=== PATIENT | female | born 1980 | race Caucasian/White ===

== ENCOUNTER 2018-02-24 14:27 | Emergency (ER) | END 2018-02-24 17:12 | disposition home or self-care (01) ==

== ENCOUNTER 2018-11-25 23:49 | Emergency (ER) | payer MEDICAID ==
[~2018-11-25] VITALS: Ht 154.9 cm; Wt 57.5 kg
[~2018-11-25 23:49] MED LIST: BACTDS PO; HYDR-3498 PO
[2018-11-25 23:55] VITALS: BP 152/74; PULSE 92; RESP 16; Ht 154.9 cm; Wt 57.5 kg
[2018-11-26] MEDS ORDERED: ALBU18HF INHALATION (01:25)
[2018-11-26] MEDS ORDERED: AZIT250T PO (01:25)
[2018-11-26] MEDS ORDERED: HYCODAN PO (01:29)
--- NOTE | 2018-11-26 01:35 | ERD ---
ER Documentation Chief Complaint Chief Complaint cough w/ CWP x2 weeks HPI 38-year-old female who presents to the emergency room with approximately 2 to 3 weeks of cough. Cough is dry nonproductive. The patient has chest wall pain with coughing. No fever during this timeframe. Persistent symptoms despite the use of [id number] medications. No history of asthma or smoking. She denies exertional symptoms. No leg swelling. Symptoms are moderate. ROS All systems reviewed and are negative except as per history of present illness. Medications Home Meds Active Scripts [Hycodan 5mg/1.5mg] No Conflict Check, 1 TAB PO TID PRN for COUGH, #12 Prov:PAUL DIAZ MD 11/26/18 Azithromycin* (Zithromax*) 250 Mg Tablet, 250 MG PO .ZPACK DIRECTED, #6 TAB TAKE 500 MG (2 TABS) THE FIRST DAY THEN 250 MG (1 TAB) DAYS 2-5 Prov:PAUL DIAZ MD 11/26/18 Albuterol Sulfate* (Ventolin HFA*) 18 Gm Hfa.aer.ad, 2 PUFF INHALATION Q4H, #1 INHALER Prov:PAUL DIAZ MD 11/26/18 Hydrocodone Bit-Acetaminophen* (Merlin*) 5-325 Mg Tab, 1 TAB PO Q6 PRN for PAIN, #15 TAB Prov:MARTHA CERON 09/06/15 Sulfamethoxazole-Trimethoprim* (Bactrim* DS) 800-160 Mg Tab, 1 TAB PO BID for 14 Days, TAB Prov:MARTHA CERON 09/06/15 Allergies Allergies: Coded Allergies: No Known Drug Allergy (Verified Allergy, Unknown, 09/06/15) PMhx/Soc History of Surgery: Yes (APPENDECTOMY) Anesthesia Reaction: No Hx Neurological Disorder: No Hx Respiratory Disorders: No Hx Cardiac Disorders: No Hx Psychiatric Problems: No Hx Miscellaneous Medical Probl: Yes (ANEMIA) Hx Alcohol Use: No Hx Substance Use: No Hx Tobacco Use: No FmHx Family History: No diabetes Physical Exam Vitals Vital Signs Date Temp Pulse Resp B/P (MAP) Pulse Ox O2 O2 Flow FiO2 Time Delivery Rate 11/25/18 98.1 92 16 152/74 98 23:55 (100) Physical Exam General: Well developed, well nourished, no acute distress Head: Normocephalic, atraumatic. Eyes: Pupils equally reactive, EOM intact ENT: Moist mucous membranes Neck: Supple, no lymphadenopathy Respiratory: Lungs clear bilaterally, no distress Cardiovascular: RRR, no murmurs, rubs, or gallops Abdominal: Soft, non-tender, non-distended, no peritoneal signs : Deferred MSK: No edema, no unilateral swelling, 5/5 strength Neurologic: Alert and oriented, moving all extremities, normal speech, no focal weakness, no cerebellar signs Skin: No rash Psych: Normal mood Procedures/MDM The patient's clinical presentation is very consistent with an acute viral syndrome versus atypical pneumonia. Given duration of symptoms I believe a trial of inhaler, antibiotics would be appropriate. I do not believe chest x- ray imaging will be helpful at this time. Low concern for malignancy. Lungs are clear and oxygen saturation 100%. The patient does not exhibit any clinical signs or symptoms concerning for serious bacterial infection or systemic illness. Based on history and clinical exam findings the patient does not appear to have evidence of pneumonia, strep pharyngitis, urinary tract infection, bacteremia, sepsis, or meningitis. For these reasons I do not believe it is necessary to obtain laboratory testing or diagnostic imaging. I believe it would be appropriate for symptom control, and close outpatient primary care follow-up. We discussed follow up with the patient's primary care doctor within 24 to 48 hours as needed. We also discussed return to the emergency room for worsening symptoms or worsening condition. Discharge Medications: Azithromycin, albuterol, Hycodan Departure Diagnosis: Primary Impression: Acute bronchitis Bronchitis organism: unspecified organism Qualified Codes: J20.9 - Acute bronchitis, unspecified Condition: Stable Patient Instructions: Acute Bronchitis Referrals: [facility] YOU HAVE RECEIVED A MEDICAL SCREENING EXAM AND THE RESULTS INDICATE THAT YOU DO NOT HAVE A CONDITION THAT REQUIRES URGENT TREATMENT IN THE EMERGENCY DEPARTMENT. FURTHER EVALUATION AND TREATMENT OF YOUR CONDITION CAN WAIT UNTIL YOU ARE SEEN IN YOUR DOCTORS OFFICE WITHIN THE NEXT 1-2 DAYS. IT IS YOUR RESPONSIBILITY TO MAKE AN APPOINTMENT FOR FOLOW-UP CARE. IF YOU HAVE A PRIMARY DOCTOR --you should call your primary doctor and schedule an appointment IF YOU DO NOT HAVE A PRIMARY DOCTOR YOU CAN CALL OUR PHYSICIAN REFERRAL HOTLINE AT IF YOU CAN NOT AFFORD TO SEE A PHYSICIAN YOU CAN CHOSE FROM THE FOLLOWING COMMUNITY CLINICS [facility] [address] [facility] [address] [facility] [address] [facility] [address] [facility] [address] [facility]. [facility] [address] [facility]. [facility] YOU HAVE RECEIVED A MEDICAL SCREENING EXAM AND THE RESULTS INDICATE THAT YOU DO NOT HAVE A CONDITION THAT REQUIRES URGENT TREATMENT IN THE EMERGENCY DEPARTMENT. FURTHER EVALUATION AND TREATMENT OF YOUR CONDITION CAN WAIT UNTIL YOU ARE SEEN IN YOUR DOCTORS OFFICE WITHIN THE NEXT 1-2 DAYS. IT IS YOUR RESPONSIBILITY TO MAKE AN APPOINTMENT FOR FOLOW-UP CARE. IF YOU HAVE A PRIMARY DOCTOR --you should call your primary doctor and schedule and appointment IF YOU DO NOT HAVE A PRIMARY DOCTOR YOU CAN CALL OUR PHYSICIAN REFERRAL HOTLINE AT . IF YOU CAN NOT AFFORD TO SEE A PHYSICIAN YOU CAN CHOSE FROM THE FOLLOWING [facility]: [facility] [address] [place] [address] [facility] [address] [place] [address] [facility] [address] [place] [address] Additional Instructions: Call your primary care doctor TOMORROW for an appointment during the next 1 WEEK.Tell the trade union secretary that you were referred from this facility.See the doctor sooner or return here if your condition worsens before your appointment time. PAUL DIAZ MD Nov 26, 2018 01:34
== END 2018-11-26 02:14 | disposition home or self-care (01) ==
LOC: E/R 23:49
DX: J20.9 Acute bronchitis, unspecified (principal)
CPT/HCPCS: 99283

== ENCOUNTER 2018-12-01 18:23 | Emergency (ER) | payer MEDICAID ==
[~2018-12-01] VITALS: Ht 154.9 cm; Wt 57.1 kg
[~2018-12-01 18:23] MED LIST changes: +ALBU18HF INHALATION; +AZIT250T PO; +HYCODAN PO
[2018-12-01 18:33] VITALS: Ht 154.9 cm; Wt 57.1 kg
[2018-12-01] MEDS ORDERED: BENZ-6 PO (20:02)
--- NOTE | 2018-12-01 20:05 | ERD ---
ER Documentation Chief Complaint Chief Complaint COUGH X 1 WEEK HPI Patient is a 38-year-old female, no past medical history, who presents the ER for concerns of dry cough x1 week. Patient was seen here 5 days ago and diagnosed of bronchitis. Patient was given azithromycin and reports completing it. Patient presents today given that she continues to have a cough. Patient no fevers or chills. Patient has no chest pain, shortness breath, nausea, vomiting, left upper extremity pain, diaphoresis or LOC. ROS All systems reviewed and are negative except as per history of present illness. Medications Home Meds Active Scripts Benzonatate* (Tessalon Perle*) 100 Mg Capsule, 100 MG PO Q8H PRN for COUGH, #30 CAP Prov:WANDER MARTINEZ PA-C 12/01/18 [Hycodan 5mg/1.5mg] No Conflict Check, 1 TAB PO TID PRN for COUGH, #12 Prov:PAUL DIAZ MD 11/26/18 Azithromycin* (Zithromax*) 250 Mg Tablet, 250 MG PO .ZPACK DIRECTED, #6 TAB TAKE 500 MG (2 TABS) THE FIRST DAY THEN 250 MG (1 TAB) DAYS 2-5 Prov:PAUL DIAZ MD 11/26/18 Albuterol Sulfate* (Ventolin HFA*) 18 Gm Hfa.aer.ad, 2 PUFF INHALATION Q4H, #1 INHALER Prov:PAUL DIAZ MD 11/26/18 Hydrocodone Bit-Acetaminophen* ([place]*) 5-325 Mg Tab, 1 TAB PO Q6 PRN for PAIN, #15 TAB Prov:MARTHA CERON 09/06/15 Sulfamethoxazole-Trimethoprim* (Bactrim* DS) 800-160 Mg Tab, 1 TAB PO BID for 14 Days, TAB Prov:MARTHA CERON 09/06/15 Allergies Allergies: Coded Allergies: No Known Drug Allergy (Verified Allergy, Unknown, 09/06/15) PMhx/Soc History of Surgery: Yes (Appedectomy) Anesthesia Reaction: No Hx Neurological Disorder: No Hx Respiratory Disorders: No Hx Cardiac Disorders: No Hx Psychiatric Problems: No Hx Miscellaneous Medical Probl: Yes (Anemia; takes iron ) Hx Alcohol Use: No Hx Substance Use: No Hx Tobacco Use: No FmHx Family History: No diabetes Physical Exam Vitals Vital Signs Date Temp Pulse Resp B/P (MAP) Pulse Ox O2 O2 Flow FiO2 Time Delivery Rate 12/01/18 99.0 81 18 134/72 98 18:33 (92) Physical Exam GENERAL: Well-developed, well-nourished female speaking in full sentences. No acute distress. HEAD: Normocephalic, atraumatic. EYES: Pupils are equally reactive bilaterally. EOMs grossly intact. No conjunctival erythema. ENT: Moist mucous membranes. No uvula deviation. No kissing tonsils. NECK: Supple. No meningismus. Normal range of motion of the neck. LUNG: Clear to auscultation bilaterally. No rhonchi, wheezing, rales or coarse breath sounds. HEART: Regular rate and rhythm. No murmurs, rubs or gallops. ABDOMEN: No scars, ecchymosis or rashes noted. Soft, nontender, and nondistended. Positive bowel sounds in all four quadrants. No rebound tenderness, no guarding. (-) McBurney's point tenderness. No CVA tenderness. BACK: No midline tenderness. EXTREMITIES: Equal pulses bilaterally. No peripheral clubbing, cyanosis or edema. No unilateral leg swelling. NEUROLOGIC: Alert and oriented. Moving all four extremities without any difficulty. Normal speech. Steady gait. SKIN: Normal color. Warm and dry. No rashes or lesions. Procedures/MDM MEDICAL DECISION MAKING: This is a 38year-old female presents the ER for concerns of cough x3 weeks. Patient was seen here 5 days ago and given azithromycin for concerns of bronchitis. Patient presents again given that she states she continues to have a cough after completing azithromycin. Patient has no fevers. Vital signs were reviewed. Patient was afebrile. Patient was not hypoxic. Lung exam was normal. Chest x-ray was unremarkable. Patient likely has a viral syndrome. Low suspicion for CHF, TB, pneumonia, meningitis, sinusitis, otitis externa, acute otitis media, strep pharyngitis, epiglottitis or peritonsillar abscess. Patient was nontoxic, [id number] prior to discharge. PRESCRIPTIONS: Tessalon Perlelisa DISCHARGE: At this time, patient is stable for discharge and outpatient management. Supportive therapies such as OTC throat lozenges, salt water gurgles, popsicles and jello discussed. I have instructed the patient to follow-up with his/her primary care physician in 1-2 days. I have instructed the patient to promptly re turn to the ER for any new or worsening symptoms including increased pain, swelling, fever, nausea, vomiting, weakness or difficulty breathing. The patient and/or family expressed understanding of and agreement with this plan. All questions were answered. Home care instructions were provided. Disclaimer: Inadvertent spelling and grammatical errors are likely due to EHR/dictation software use and do not reflect on the overall quality of patient care. Also, please note that the electronic time recorded on this note does not necessarily reflect the actual time of the patient encounter. Departure Diagnosis: Primary Impression: Cough Condition: Fair Patient Instructions: Cough, Chronic, Uncertain Cause, (Adult) Referrals: [facility] YOU HAVE RECEIVED A MEDICAL SCREENING EXAM AND THE RESULTS INDICATE THAT YOU DO NOT HAVE A CONDITION THAT REQUIRES URGENT TREATMENT IN THE EMERGENCY DEPARTMENT. FURTHER EVALUATION AND TREATMENT OF YOUR CONDITION CAN WAIT UNTIL YOU ARE SEEN IN YOUR DOCTORS OFFICE WITHIN THE NEXT 1-2 DAYS. IT IS YOUR RESPONSIBILITY TO MAKE AN APPOINTMENT FOR FOLOW-UP CARE. IF YOU HAVE A PRIMARY DOCTOR --you should call your primary doctor and schedule an appointment IF YOU DO NOT HAVE A PRIMARY DOCTOR YOU CAN CALL OUR PHYSICIAN REFERRAL HOTLINE AT IF YOU CAN NOT AFFORD TO SEE A PHYSICIAN YOU CAN CHOSE FROM THE FOLLOWING [facility] [address] [facility]. [facility] [address] [facility] [address] [facility]. [facility] [address] [facility]. [facility] [address] [facility]. [facility]. [address] [facility] [facility] YOU HAVE RECEIVED A MEDICAL SCREENING EXAM AND THE RESULTS INDICATE THAT YOU DO NOT HAVE A CONDITION THAT REQUIRES URGENT TREATMENT IN THE EMERGENCY DEPARTMENT. FURTHER EVALUATION AND TREATMENT OF YOUR CONDITION CAN WAIT UNTIL YOU ARE SEEN IN YOUR DOCTORS OFFICE WITHIN THE NEXT 1-2 DAYS. IT IS YOUR RESPONSIBILITY TO MAKE AN APPOINTMENT FOR FOLOW-UP CARE. IF YOU HAVE A PRIMARY DOCTOR --you should call your primary doctor and schedule and appointment IF YOU DO NOT HAVE A PRIMARY DOCTOR YOU CAN CALL OUR PHYSICIAN REFERRAL HOTLINE AT . IF YOU CAN NOT AFFORD TO SEE A PHYSICIAN YOU CAN CHOSE FROM THE FOLLOWING [facility]: [facility] [address] [place] [address] [facility] [address] [place] [address] [facility] + [facility] [address] [place] [address] Additional Instructions: Call your primary care doctor TOMORROW for an appointment during the next 1-2 days.See the doctor sooner or return here if your condition worsens before your appointment time. WANDER MARTINEZ PA-C Dec 01, 2018 20:05
[2018-12-01 20:19] VITALS: BP 134/66; PULSE 95; RESP 18
== END 2018-12-01 20:20 | disposition home or self-care (01) ==
LOC: FTE 18:23
DX: R05 Cough (principal)
CPT/HCPCS: 71045; Z7502